=== PATIENT | male | born 1985 | race African-American/Black ===

== ENCOUNTER 2023-02-21 22:50 | Emergency (ER) | payer OTHER ==
[~2023-02-21] VITALS: Ht 175.3 cm; Wt 110.4 kg
[2023-02-21 23:00] VITALS: BP 128/81
[2023-02-21] MEDS ORDERED: LIDOCAINE HCL/PF 1% 10 MG/ML 5ML VIAL INFIL ONE (23:30)
[2023-02-21] MEDS ORDERED: TETANUS, DIPHTHERIA, PERTUSSIS VAC/PF 0.5ML (>10YR OLD) IM ONE (23:30)
== END 2023-02-22 00:27 | disposition home or self-care (01) ==
LOC: ER 22:50
DX: S61.223A Laceration with foreign body of left middle finger without damage to nail, initial encounter (principal); F12.10 Cannabis abuse, uncomplicated; W25.XXXA Contact with sharp glass, initial encounter; Y93.89 Activity, other specified; Y92.89 Other specified places as the place of occurrence of the external cause; Y99.8 Other external cause status
CPT/HCPCS: 12001; 90471; 90715; 99283; Z7610

== ENCOUNTER 2023-02-24 08:41 | Emergency (ER) | payer OTHER ==
[~2023-02-24] VITALS: Ht 175.3 cm; Wt 85.0 kg
[2023-02-24 08:53] VITALS: BP 124/82
== END 2023-02-24 09:21 | disposition home or self-care (01) ==
LOC: ER 08:50
DX: Z48.00 Encounter for change or removal of nonsurgical wound dressing (principal)
CPT/HCPCS: 99281

== ENCOUNTER 2023-03-11 08:42 | Emergency (ER) | payer OTHER ==
[~2023-03-11] VITALS: Ht 175.3 cm; Wt 84.0 kg
[2023-03-11 10:58] VITALS: BP 126/64
== END 2023-03-11 10:59 | disposition home or self-care (01) ==
LOC: ER 08:42
DX: S61.213D Laceration without foreign body of left middle finger without damage to nail, subsequent encounter (principal); X58.XXXD Exposure to other specified factors, subsequent encounter; F12.10 Cannabis abuse, uncomplicated
CPT/HCPCS: 99281; Z7610